=== PATIENT | male | born 1990 | race Caucasian/White ===

== ENCOUNTER 2016-09-22 02:16 | Emergency (ER) | payer BC ==
[2016-09-22 02:19] VITALS: O2SAT 95
[2016-09-22] MEDS ORDERED: BACIGUENT PACKET TP ONE (02:39)
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
[2016-09-22] MEDS ORDERED: BACIGUENT PACKET ONE (02:51)
[2016-09-22] MEDS: Adacel Vial IM ONE ×2 (02:54→03:07)
[2016-09-22] MEDS ORDERED: Adacel Vial IM ONE (02:54)
[2016-09-22 03:29] VITALS: BP 128/71; PULSE 90
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
== END 2016-09-22 03:31 | disposition home or self-care (01) ==
LOC: ED 02:16
PROC: 2W3EX1Z Immobilization of Right Hand using Splint (ICD-10-PCS; principal; 2016-09-22)
DX: S60.221A Contusion of right hand, initial encounter (principal); S63.91XA Sprain of unspecified part of right wrist and hand, initial encounter; W22.01XA Walked into wall, initial encounter; Z79.899 Other long term (current) drug therapy
CPT/HCPCS: 29126; 73130; 90715; 99283